=== PATIENT | male | born 1990 | race Two or more races ===

== ENCOUNTER 2024-09-17 13:53 | Outpatient (AMB) | payer MEDICAID, SELFPAY ==
[2024-09-17 14:17] VITALS: BP 104/67; PULSE 84; RESP 18; TEMP 35.4; O2SAT 96; BMI 35.9
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
--- NOTE | 2024-09-17 14:26 | XR_ITS ---
Examination:Right hip AP, lateral, AP pelvis 3 views Technique: Hip AP lateral, AP pelvis, 3 views Exam date and time:September 17, 2024 1433 hrs. Indications: Right hip pain beginning 2 weeks ago Findings: Fusion right hip joint Orthopedic hardware [id number] right hemipelvis fractures Moderate narrowing left hip joint Impression: Fusion right hip joint.
== END 2024-09-17 14:27 | disposition home or self-care (01) ==
LOC: HODSRG 13:53
PROVIDERS: PCP Physician Assistant; Referring Provider Physician Assistant; Supervising Provider Orthopaedic Surgery Adult Reconstructive Orthopaedic Surgery; Visit Provider Orthopaedic Surgery Adult Reconstructive Orthopaedic Surgery
DX: M16.11 Unilateral primary osteoarthritis, right hip (principal); Z98.890 Other specified postprocedural states
CPT/HCPCS: 73502; 99204; G0463

== ENCOUNTER 2024-10-03 11:45 | Outpatient (AMB) | payer MEDICAID, SELFPAY ==
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
== END 2024-10-03 12:04 | disposition home or self-care (01) ==
LOC: HODSRG 11:45
PROVIDERS: PCP Physician Assistant; Referring Provider Physician Assistant; Supervising Provider Orthopaedic Surgery Adult Reconstructive Orthopaedic Surgery; Visit Provider Orthopaedic Surgery Adult Reconstructive Orthopaedic Surgery
DX: M16.11 Unilateral primary osteoarthritis, right hip (principal)
CPT/HCPCS: 99212; G0463

== ENCOUNTER → 2025-05-13 | Outpatient (CLI) | payer MEDICAID, SELFPAY ==
--- NOTE | 2025-05-13 10:31 | XR_ITS ---
EXAMINATION: Cervical spine, 5 views Technique: Cervical spine AP, AP odontoid, lateral, bilateral obliques, 5 views Exam date and time: May 13, 2025, 1054 hours INDICATIONS: Patient fell 9 days ago with into the neck, neck pain FINDINGS: Adequate alignment cervical vertebral bodies Mild disc narrowing C4-C5 No cervical fracture Intact odontoid Mild neural foraminal stenosis bilaterally C4-C5 IMPRESSION: No acute cervical fracture
--- NOTE | 2025-05-13 10:31 | XR_ITS ---
EXAMINATION: Thoracic spine 3 views TECHNIQUE: AP lateral: Lateral upper dorsal spine 3 views Date and time: May 13, 2025, 1059 hours INDICATIONS: Patient fell 9 days ago with injury to the back, back pain. FINDINGS: Mild osteopenia Mild thoracic dextroscoliosis which may be positional No acute thoracic fracture Limited study, note: View upper dorsal spine IMPRESSION: Limited study, recommend follow-up lateral upper dorsal spine view
--- NOTE | 2025-05-13 10:31 | XR_ITS ---
Examination: Lumbar spine, 5 views Technique: Lumbar spine AP, lateral, coned lateral lower lumbar spine, bilateral obliques 5 views Exam date and time: May 13, 2025, 10:54 a.m. INDICATIONS: Patient fell 9 days ago with injury to lower back, lower back pain. FINDINGS: Severe osteopenia Moderate to advanced diffuse facet arthropathy No acute lumbar fracture Mild disc narrowing posterior L5-S1 No spondylolisthesis IMPRESSION: No acute lumbar fracture
== END | disposition home or self-care (01) ==
DX: S19.9XXA Unspecified injury of neck, initial encounter (principal); S29.9XXA Unspecified injury of thorax, initial encounter; S39.92XA Unspecified injury of lower back, initial encounter; W19.XXXA Unspecified fall, initial encounter
CPT/HCPCS: 72050; 72072; 72110